=== PATIENT | male | born 1975 | race Caucasian/White ===

== ENCOUNTER 2018-07-08 12:10 | Emergency (ER) | payer BC ==
--- NOTE | 2018-07-08 12:53 | EDM.PDOC ---
ED HPI GENERAL MEDICAL PROBLEM - General Chief Complaint: Gastrointestinal Problem Stated Complaint: NAUSEA/CHILLS/SWEATS Time Seen by Provider: 07/08/18 12:30 Source of Information: Reports: Patient, RN Notes Reviewed History Limitations: Reports: No Limitations - History of Present Illness INITIAL COMMENTS - FREE TEXT/NARRATIVE: The patient states that he has been experiencing nausea, sweaty chills, and upper abdominal bloating sensation on and off since around 2017. He states that he was seen at the walk-in clinic around that time, and subsequently seen by his PCP around 1 month ago, and that blood tests were done and were negative. The patient was referred to Dr. Latif for an EGD, which was scheduled for today, however, when the patient experienced the same symptoms again when he woke this morning, his encouraged him to come here instead of go to the EGD. No recent fever. The patient reports slight diarrhea. No recent constipation or urinary symptoms. The patient's PCP is Dr. Patrick Wilkins. Bilateral Upper Abdomen Pain Score (Numeric/FACES): 5 - Related Data Allergies Allergy/AdvReac Type Severity Reaction Status Date / Time No Known Allergies Allergy Verified 07/08/18 12:24 Home Meds: Home Meds Lisinopril 40 mg PO DAILY 07/08/18 [History] Past Medical History Cardiovascular History: Reports: Hypertension Gastrointestinal History: Reports: GERD Psychiatric History: Reports: Anxiety (untreated) - Past Surgical History HEENT Surgical History: Reports: Oral Surgery (wisdom teeth extraction) GI Surgical History: Reports: Appendectomy (around 2015), Cholecystectomy ( around 2011), EGD Social & Family History - Tobacco Use Smoking Status *Q: Former Smoker Years of Tobacco use: 22 Packs/Tins Daily: 1 Month/Year Tobacco Last Used: Quit 2015 - Caffeine Use Caffeine Use: Reports: Soda - Alcohol Use Alcohol Use History: Yes Alcohol Use Frequency: Socially - Recreational Drug Use Recreational Drug Use: Yes Drug Use in Last 12 Months: No Recreational Drug Type: Reports: Marijuana/Hashish (last smoked when 18 years old) - Living Situation & Occupation Living situation: Reports: with Spouse, with Family (2 daughters) Occupation: Employed ([employer]) ED ROS GENERAL - Review of Systems Review Of Systems: ROS reveals no pertinent complaints other than HPI. ED EXAM, GENERAL - Physical Exam Exam: See Below Exam Limited By: No Limitations General Appearance: Alert, WD/WN, No Apparent Distress Eye Exam: Bilateral Eye: EOMI, Normal Inspection Ears: Normal External Exam, Hearing Grossly Normal Nose: Normal Inspection Throat/Mouth: Normal Inspection, Normal Lips, Normal Voice, No Airway Compromise Head: Atraumatic, Normocephalic Neck: Normal Inspection, Full Range of Motion Respiratory/Chest: No Respiratory Distress, Lungs Clear, Normal Breath Sounds, No Accessory Muscle Use Cardiovascular: Normal Peripheral Pulses, Regular Rate, Rhythm, No Gallop, No JVD, No Murmur, No Rub Peripheral Pulses: 4+: Radial (L), Radial (R) GI/Abdominal: Normal Bowel Sounds, Soft, No Organomegaly, No Distention, No Abnormal Bruit, No Mass, Tender (Mild, epigastrium only. Nontender elsewhere.) (Male) Exam: Deferred Rectal (Males) Exam: Deferred Back Exam: Normal Inspection, Full Range of Motion, NT Extremities: Normal Inspection, Normal Range of Motion, No Pedal Edema, Normal Capillary Refill Neurological: Alert, Oriented, Normal Cognition, No Motor/Sensory Deficits Psychiatric: Normal Affect Skin Exam: Warm, Dry, Intact, Normal Color, No Rash Course - Vital Signs Last Recorded V/S: Last Vital Signs Temp 36.1 C 07/08/18 12:21 Pulse 80 07/08/18 12:21 Resp 18 07/08/18 12:21 BP 174/110 H 07/08/18 12:21 Pulse Ox 97 07/08/18 12:21 - Orders/Labs/Meds Labs: Laboratory Tests 07/08/18 07/08/18 Range/Units 13:15 13:15 WBC 9.10 H (4.23-9.07) K/mm3 RBC 4.46 L (4.63-6.08) M/mm3 Hgb 14.3 (13.7-17.5) gm/L Hct 42.0 (40.1-51.0) % MCV 94.2 H (79.0-92.2) fl MCH 32.1 (25.7-32.2) pg MCHC 34.0 (32.2-35.5) g/dl RDW Std Deviation 44.5 H (35.1-43.9) fL Plt Count 234 (163-337) K/mm3 MPV 9.6 (9.4-12.3) fl Neutrophils % (Manual) 78 H (40-60) % Band Neutrophils % 0 (0-10) % Lymphocytes % (Manual) 15 L (20-40) % Atypical Lymphs % 0 % Monocytes % (Manual) 3 (2-10) % Eosinophils % (Manual) 4 (0.8-7.0) % Basophils % (Manual) 0 L (0.2-1.2) Platelet Estimate Adequate RBC Morph Comment Normal Sodium 140 (136-145) mEq/L Potassium 3.8 (3.5-5.1) mEq/L Chloride 104 (98-107) mEq/L Carbon Dioxide 26 (21-32) mEq/L Anion Gap 13.8 (5-15) BUN 16 (7-18) mg/dL Creatinine 1.2 (0.7-1.3) mg/dL Est Cr Clr Drug Dosing 82.80 mL/min Estimated GFR (MDRD) > 60 (>60) mL/min BUN/Creatinine Ratio 13.3 L (14-18) Glucose 123 H (74-106) mg/dL Calcium 8.8 (8.5-10.1) mg/dL Magnesium 1.7 L (1.8-2.4) mg/dl Total Bilirubin 0.4 (0.2-1.0) mg/dL AST 22 (15-37) U/L ALT 27 (16-63) U/L Alkaline Phosphatase 79 (46-116) U/L Total Protein 7.1 (6.4-8.2) g/dl Albumin 3.4 (3.4-5.0) g/dl Globulin 3.7 gm/dL Albumin/Globulin Ratio 0.9 L (1-2) Lipase 127 (73-393) U/L - Re-Assessments/Exams Free Text/Narrative Re-Assessment/Exam: 07/08/18 12:51 I explained to the patient that I may not be able to diagnose the cause of his symptoms of upper abdominal bloating, nausea, and sweaty chills, that have been going on since around 2017. I explained to the patient that the emergency department does not perform diagnostic workups, rather, the emergency department determines whether or not a medical emergency exists, and if not, then the diagnostic workup is done as an outpatient. I agree that the patient would benefit from an EGD, however I explained that the emergency department does not perform EGDs. For today's purposes, I will run some blood tests to see if there are any significant abnormalities, such as severe anemia or pancreatitis, but if today's workup is negative, then the patient will need to reschedule with Dr. Latif. 07/08/18 14:46 Test results discussed with the patient. Today's workup is grossly unremarkable , and does not explain the cause of his symptoms. I will discharge the patient home with recommendation that he contact the office of Dr. Latif to reschedule his endoscopy, and, if possible, I am recommending that he get scoped at both ends, not just an EGD. Departure - Departure Time of Disposition: 14:46 Disposition: Home, Self-Care 01 Condition: Good Clinical Impression: Nausea, Abdominal bloating, Chills, Diaphoresis - Discharge Information *PRESCRIPTION DRUG MONITORING PROGRAM REVIEWED*: Not Applicable *COPY OF PRESCRIPTION DRUG MONITORING REPORT IN PATIENT SHANTELL: Not Applicable Instructions: Nausea, Adult, Abdominal Bloating Referrals: Patrick Wilkins Jr, MD [Primary Care Provider] - Damian Laitf MD [Physician] - Forms: ED Department Discharge Additional Instructions: You were seen in the emergency room for recurrent nausea, sweaty chills, and upper abdominal bloating, since 2017. Workup in the ER included blood work, all of which returned grossly unremarkable. The cause of your symptoms is not clear. Further evaluation is needed. We recommend that you contact the office of Dr. Damian Latif to reschedule an EGD, and, if possible, a colonoscopy, as well. Follow-up with your PCP, Dr. Patrick Wilkins, as needed. If any other problems, please do not hesitate to return to the ER.
== END 2018-07-08 14:59 | disposition home or self-care (01) ==
LOC: JD.ED 12:10
DX: R14.0 Abdominal distension (gaseous) (principal); R61 Generalized hyperhidrosis; R68.83 Chills (without fever); R11.0 Nausea; I10 Essential (primary) hypertension; K21.9 Gastro-esophageal reflux disease without esophagitis; Z79.899 Other long term (current) drug therapy; Z87.891 Personal history of nicotine dependence
CPT/HCPCS: 36415; 80053; 83690; 83735; 85007; 85027; 99284

== ENCOUNTER 2018-08-19 07:42 | Day surgery (SDC) | payer BC ==
[~2018-08-19 07:42] MED LIST: Lactated Ringers 1,000 ML IV SCH; Lidocaine 1%/Sod Bicarbonate in NS 8.4% 1 ML Syringe IDERM PRN; Sodium Chloride 0.9% 10 ML Syringe FLUSH PRN
--- NOTE | 2018-08-19 08:15 | PCM.PREANE ---
Preanesthetic Assessment - Anesthesia/Transfusion/Family Hx Family History of Anesthesia Reaction: No - Review of Systems General: No Symptoms Pulmonary: Other (former smoker) Cardiovascular: Other (HTN) Gastrointestinal: Other (GERD) Neurological: Other (back pain) Other: Reports: Anxiety - Physical Assessment NPO Status Date: 08/18/18 NPO Status Time: 23:00 Pulse: 76 O2 Sat by Pulse Oximetry: 94 Respiratory Rate: 16 Blood Pressure: 119/88 Weight: 107 kg ASA Class: 2 Mental Status: Alert & Oriented x3 Airway Class: Mallampati = 2 Dentition: Reports: Normal Dentition Thyro-Mental Finger Breadths: 3 Mouth Opening Finger Breadths: 3 ROM/Head Extension: Full Lungs: Clear to Auscultation, Normal Respiratory Effort Cardiovascular: Regular Rate, Regular Rhythm - Allergies Allergies/Adverse Reactions: Allergies Allergy/AdvReac Type Severity Reaction Status Date / Time No Known Allergies Allergy Verified 08/16/18 10:23 - Blood Blood Available: No Product(s) Available: None - Anesthesia Plan Pre-Op Medication Ordered: None - Acknowledgements Anesthesia Type Planned: MAC Pt an Appropriate Candidate for the Planned Anesthesia: Yes Alternatives and Risks of Anesthesia Discussed w Pt/Guardian: Yes Pt/Guardian Understands and Agrees with Anesthesia Plan: Yes PreAnesthesia Questionnaire HEENT History: Reports: None Cardiovascular History: Reports: Hypertension Respiratory History: Reports: None Gastrointestinal History: Reports: GERD, Other (See Below) Other Gastrointestinal History: Epigastric pain Genitourinary History: Reports: None Other Musculoskeletal History: Back pain, left shoulder pain Psychiatric History: Reports: Anxiety Endocrine/Metabolic History: Reports: None Hematologic History: Reports: None Immunologic History: Reports: None Oncologic (Cancer) History: Reports: None Dermatologic History: Reports: None - Past Surgical History HEENT Surgical History: Reports: Oral Surgery Cardiovascular Surgical History: Reports: None Respiratory Surgical History: Reports: None GI Surgical History: Reports: Appendectomy, Cholecystectomy, EGD Male Surgical History: Reports: None Endocrine Surgical History: Reports: None Neurological Surgical History: Reports: C-Spine Other Neurological Surgeries/Procedures: C6-7 Fusion Musculoskeletal Surgical History: Reports: None Oncologic Surgical History: Reports: None Dermatological Surgical History: Reports: None - SUBSTANCE USE Smoking Status *Q: Former Smoker Tobacco Use Within Last Twelve Months: No Second Hand Smoke Exposure: No Recreational Drug Use History: No - HOME MEDS Home Medications: Home Meds Lisinopril 40 mg PO DAILY 07/08/18 [History] Acetaminophen [Tylenol] 650 mg PO Q4H PRN 08/16/18 [History] Cyclobenzaprine [Flexeril] 5 - 10 mg PO TID PRN 08/16/18 [History] Esomeprazole [NexIUM] 40 mg PO DAILY 08/16/18 [History] Ibuprofen 400 mg PO TID PRN 08/16/18 [History] Multivitamin [Daily Multiple Vitamin] 1 tab PO DAILY 08/16/18 [History] - CURRENT (IN HOUSE) MEDS Current Meds: Current Medications Lactated Ringer's (Ringers, Lactated) 1,000 mls @ 125 mls/hr IV ASDIRECTED ANNABELLA Stop: 08/19/18 23:00 Lidocaine/Sodium Bicarbonate (Buffered Lidocaine 1% In Ns 8.4%) 0.25 ml IDERM ONETIME PRN PRN Reason: Prior to IV Start Stop: 08/19/18 18:00 Sodium Chloride (Saline Flush) 10 ml FLUSH ASDIRECTED PRN PRN Reason: Keep Vein Open Stop: 08/19/18 18:00
[2018-08-19] MEDS ORDERED: Midazolam 1 MG/ML 2 ML SDV ONE (09:27)
[2018-08-19] MEDS ORDERED: fentaNYL 100 MCG/2 ML SDV ONE (09:27)
[2018-08-19] MEDS ORDERED: Lidocaine 1% 4 ML ONE (09:27)
[2018-08-19] MEDS ORDERED: Propofol 200 MG/20 ML SDV ONE (09:27)
--- NOTE | 2018-08-19 11:12 | PCM48HPAN ---
Post Anesthesia Note - EVALUATION WITHIN 48HRS OF ANESTHETIC Vital Signs in Normal Range: Yes Patient Participated in Evaluation: Yes Respiratory Function Stable: Yes Airway Patent: Yes Cardiovascular Function Stable: Yes Hydration Status Stable: Yes Pain Control Satisfactory: Yes Nausea and Vomiting Control Satisfactory: Yes Mental Status Recovered: Yes Pulse Rate: 62 SaO2: 95 Resp Rate: 16 Temperature: 97 F Blood Pressure: 103/51
--- NOTE | 2018-08-19 11:13 | PCM.OPNOTE ---
- General Post-Op/Procedure Note Date of Surgery/Procedure: 08/19/18 Operative Procedure(s): egdwith bx/ colonoscopy to cecum with collection of stool for analysis Pre Op Diagnosis: change in bowel habits and epigastric pain Post-Op Diagnosis: Same Anesthesia Technique: MAC Primary Surgeon: Burton Alicia EBL in mLs: 0 Complications: None Condition: Good
--- NOTE | 2018-08-20 06:27 | OR ---
DATE OF OPERATION: 08/19/2018 SURGEON: Burton Alicia MD PREOPERATIVE DIAGNOSIS: Epigastric pain, gastroesophageal reflux disease. POSTOPERATIVE DIAGNOSIS: Epigastric pain, gastroesophageal reflux disease. OPERATION PERFORMED: Esophagogastroduodenoscopy with biopsy. FINDINGS: Normal second portion of the duodenum, duodenal bulb, and pyloric channel. Antrum, body, and cardia of the stomach are unremarkable. Biopsy of the antrum was performed looking for H. pylori. J-maneuver showed an intact hiatus. GE junction was located at about 40 cm. Mild irregularity was noted. Biopsy of the GE junction was performed. Rest of the esophagus was unremarkable. ANESTHESIA: Procedure done under IV sedation. DESCRIPTION OF PROCEDURE: The patient was taken to the endoscopy room, placed in a supine position. After being connected to monitoring equipment and given IV sedation, placed in the left lateral position with a bite block inserted. A video Olympus gastroscope was placed in the posterior oropharynx under direct vision, threaded past the cricopharyngeus, down the esophagus, into the stomach. The stomach was insufflated, and the scope passed through the pylorus to the second portion of the duodenum. The scope was then slowly withdrawn noting a normal second portion of the duodenum, duodenal bulb, and pyloric channel. Antrum, body, cardia of the stomach, and fundus were viewed and were normal. Biopsies of the antrum were done looking for H. pylori. The hiatus looked intact. GE junction was located at 40 cm. Mild irregularity was noted and this was biopsied. Rest of the esophagus viewed as the scope withdrawn and was unremarkable. The patient tolerated the procedure. IV sedation will be continued for colonoscopy. ESTIMATED BLOOD LOSS: MMODAL /[id number]
--- NOTE | 2018-08-20 06:29 | OR ---
DATE OF OPERATION: 08/19/2018 SURGEON: Burton Alicia MD PREOPERATIVE DIAGNOSIS: Altered change in bowel habits. POSTOPERATIVE DIAGNOSIS: Altered change in bowel habits. OPERATION PERFORMED: Colonoscopy to the cecum with collection of stool for analysis. FINDINGS: Normal study. ANESTHESIA: Procedure done under IV sedation. DESCRIPTION OF PROCEDURE: The patient was taken to the endoscopy room, connected to monitoring equipment, given IV sedation for upper GI endoscopy, this was continued for colonoscopy. He was placed in left lateral position. Perianal area was inspected was unremarkable. Rectal exam showed good sphincter tone. A video Olympus colonoscope was then introduced into the rectum and threaded up without problem to the cecum, where the appendicular orifice was noted. Tip of the scope cannulated the ilium and this was normal. Prep was excellent. [place] Cleansing Score grade A and the scope slowly withdrawn showing the cecum, ascending colon, transverse colon, descending colon, sigmoid colon, and rectum. Retroflexed view was done. The above noted was found. The patient tolerated the procedure and sent to recovery room in stable condition, he will be followed up in the clinic. ESTIMATED BLOOD LOSS: MMODAL /[id number]
== END 2018-08-19 11:45 | disposition home or self-care (01) ==
LOC: JD.SDS 07:42
PROVIDERS: ATTEND Surgery
DX: K21.9 Gastro-esophageal reflux disease without esophagitis (principal); R10.13 Epigastric pain; R19.4 Change in bowel habit; I10 Essential (primary) hypertension; F41.9 Anxiety disorder, unspecified; Z87.891 Personal history of nicotine dependence; Z79.899 Other long term (current) drug therapy
CPT/HCPCS: 43239; 45378; 87046; 87493; 89055; J2001; J2250; J2704; J3010; J7120

== ENCOUNTER 2023-07-22 19:33 | Emergency (ER) | payer BC ==
[2023-07-22] MEDS ORDERED: Sodium Chloride 0.9% 10 ML Syringe FLUSH PRN (20:23)
[2023-07-22 20:47] LABS: BASOPHILS ABSOLUTE AUTO 0.1 K/mm3 (0.0-0.2); BASOPHILS PERCENT AUTO 1.1 % (0.0-1.0); EOSINOPHILS ABSOLUTE AUTO 0.3 K/mm3 (0.0-0.4); EOSINOPHILS PERCENT AUTO 2.6 % (0.0-6.0); HEMATOCRIT 42.8 % (42.0-52.0); HEMOGLOBIN 14.7 gm/dl (14.0-18.0); IMMATURE GRAN ABSOLUTE AUTO 0.05 K/mm3 (0.00-0.05); IMMATURE GRAN PERCENT AUTO 0.5 % (0.0-0.4); LYMPHOCYTES ABSOLUTE AUTO 2.9 K/mm3 (1.0-4.8); LYMPHOCYTES PERCENT AUTO 28.3 % (24.0-44.0); MEAN CORPUSCULAR HGB CONC 34.3 g/dl (32.0-36.0); MEAN CORPUSCULAR VOLUME 93.2 fl (83.0-99.0); MEAN PLATELET VOLUME 9.7 fl (9.4-12.4); MONOCYTES ABSOLUTE AUTO 0.7 K/mm3 (0.0-0.8); MONOCYTES PERCENT AUTO 6.9 % (0.0-8.0); NEUTROPHILS ABSOLUTE AUTO 6.3 K/mm3 (1.8-7.7); NEUTROPHILS PERCENT AUTO 60.6 % (41.0-71.0); PLATELET COUNT,PLT 276 K/mm3 (150-400); RED BLOOD CELL COUNT 4.59 M/mm3 (4.52-5.90); WHITE BLOOD CELL COUNT,WBC 10.36 K/mm3 (3.9-11.3)
[2023-07-22] MEDS: Famotidine 20 MG/2 ML SDV IVPUSH ONE (20:49)
[2023-07-22] MEDS: Aluminum Hydroxide/Magnesium Hydroxide/Simethicone Susp 30 ML Cup PO ONE (20:49)
[2023-07-22 21:11] LABS: ANION GAP 9.9 (5-15); BILIRUBIN TOTAL 0.3 mg/dL (0.2-1.0); BUN/CREATININE RATIO 11.8 (14-18); CALCIUM 9.3 mg/dL (8.5-10.1); CREATININE 1.1 mg/dL (0.7-1.3); EST CRCL DRUG DOSING (CG) 88.42 mL/min; POTASSIUM,K 3.9 mEq/L (3.5-5.1)
== END 2023-07-22 23:55 | disposition home or self-care (01) ==
LOC: JD.ED 19:33
DX: I10 Essential (primary) hypertension (principal); K21.9 Gastro-esophageal reflux disease without esophagitis; E66.9 Obesity, unspecified; Z79.899 Other long term (current) drug therapy
CPT/HCPCS: 36415; 80053; 83690; 84484; 85025; 93005; 96374; 99284; A9270; J3490; 93010